=== PATIENT | male | born 1995 | race Caucasian/White ===

== ENCOUNTER 2022-03-14 03:23 | Emergency (ER) | payer OTHER ==
[2022-03-14 03:36] VITALS: BP 117/73; PULSE 86; RESP 20; TEMP 98.4; BMI 30.9
[2022-03-14] MEDS ORDERED: ACETAMINOPHEN 325 MG TABLET (FP) PO ONE (04:13)
[2022-03-14] MEDS ORDERED: DIPHTH,PERTUSS(ACELL),TET 0.5 ML DISP.SYRIN IM ONE ×3 (04:13→04:27)
[2022-03-14] MEDS ORDERED: IBUPROFEN 400 MG TABLET (FP) PO ONE ×2 (04:13→04:21)
[2022-03-14] MEDS ORDERED: ACETAMINOPHEN 325 MG TABLET (FP) ONE (04:21)
== END 2022-03-14 05:43 | disposition home or self-care (01) ==
LOC: JER 03:23
PROC: 3E0234Z Introduction of Serum, Toxoid and Vaccine into Muscle, Percutaneous Approach (ICD-10-PCS; principal; 2022-03-14)
DX: S01.01XA Laceration without foreign body of scalp, initial encounter (principal); Y99.8 Other external cause status
CPT/HCPCS: 90471; 90715; 99283-25